=== PATIENT | female | born 1930 | race Caucasian/White ===

== ENCOUNTER 2019-07-17 20:52 | Inpatient (IN) ==
[2019-07-17 23:17] LABS: Basophils % 0.2 % (0.0-0.8); Hematocrit 43.3 VOL% (35.7-47.0); Immature Granulocytes % 0.7 %; Immature Granulocytes Absolute 0.11 #; Lymphocytes # 1.6 10*3/uL (1.4-4.0); Lymphocytes % 10.2 % (21.3-54.2); Mean Corpuscular HGB Conc 32.3 GM/DL (32-36); Mean Corpuscular Volume 92.5 FL (87-102); Mean Platelet Volume 10.5 FL (9.6-12.0); Neutrophils % 82.9 % (38.7-73.9); Platelet Count 127 T/CUMM (130-400); Red Blood Count 4.68 MC/CUMM (3.8-5.5); White Blood Count 15.6 T/CUMM (4-12)
[2019-07-17 23:26] LABS: Albumin 3.6 G/DL (3.4-5.0); Bilirubin,Total 1.3 MG/DL (0.2-1.0); Calcium 8.9 MG/DL (8.5-10.1); Osmolality,Calculated 280.3 MOS/KG (273-304); Total Protein 6.8 G/DL (6.4-8.3)
[2019-07-17] MEDS ORDERED: SODIUM CHLORIDE 0.9% 1,000 ML IV STA (23:38)
[2019-07-18 00:06] LABS: Apearance,Urine CLEAR (Clear); Bilirubin,Urine Negative (Negative); Blood, Urine Negative (Negative); Glucose,Urine (UA) Negative (Negative); Ketones,Urine 20 mg/dL (Negative); Mucus,Urine Occasional /LPF (Occasional); Nitrite,Urine Negative (Negative); Protein,Urine 30 MG/DL; RBC,Urine 3 /HPF (0-4); Squamous Epithelial Cell,Urine Occasional /HPF (0-10); Urine Color Yellow (Yellow); Urine Specific Gravity 1.019 (1.001-1.035); Urine Urobilinogen < 2.0 EU/DL (0.2-1.0); WBC,Urine 1 /HPF (0-6)
[2019-07-18] MEDS ORDERED: NICOTINE 21 MG/24 HR PATCH TRANSDERM PRN (01:30)
[2019-07-18] MEDS ORDERED: BISACODYL 5 MG TABLET PO PRN (01:30)
[2019-07-18] MEDS: ACETAMINOPHEN 325 MG TABLET PO PRN (01:43)
[2019-07-18] MEDS: SODIUM CHLORIDE 0.9% 1,000 ML IV SCH ×2 (03:12→12:48)
[2019-07-18] MEDS ORDERED: PIPERACILLIN/TAZOBACTAM 3,375 MG in SODIUM CHLORIDE 0.9% 100 ML IV SCH (04:00)
[2019-07-18] MEDS ORDERED: NITROGLYCERIN SL 0.4 MG TABLET SL PRN (08:15)
[2019-07-18] MEDS: cefTRIAXone 1,000 MG in SYRINGE 1 EACH IV SCH (09:42)
[2019-07-18] MEDS: AZITHROMYCIN INJ 500 MG in SODIUM CHLORIDE 0.9% 250 ML IV SCH (09:47)
[2019-07-18] MEDS: ONDANSETRON 4 MG/2 ML VIAL IV PRN ×2 (10:02→14:38)
[2019-07-18] MEDS: POTASSIUM CHLORIDE 10 MEQ TABLET PO SCH (14:40)
[2019-07-18] MEDS: ASPIRIN EC 325 MG TABLET PO SCH (14:40)
[2019-07-18] MEDS: METOPROLOL TARTRATE 50 MG TABLET PO SCH ×2 (14:40→20:35)
[2019-07-18] MEDS: GABAPENTIN 600 MG TABLET PO SCH (20:36)
[2019-07-19 05:42] LABS: Basophils % 0.2 % (0.0-0.8); Eosinophils # 0.1 10*3/uL (0.0-0.87); Eosinophils % 0.6 % (0.00-10.9); Hematocrit 38.7 VOL% (35.7-47.0); Hemoglobin 12.2 GM/DL (12.0-16.0); Immature Granulocytes % 0.6 %; Immature Granulocytes Absolute 0.07 #; Lymphocytes # 1.5 10*3/uL (1.4-4.0); Lymphocytes % 12.1 % (21.3-54.2); Mean Corpuscular HGB Conc 31.5 GM/DL (32-36); Mean Corpuscular Volume 93.5 FL (87-102); Mean Platelet Volume 10.6 FL (9.6-12.0); Monocytes % 4.4 % (1.7-12.7); Neutrophils % 82.1 % (38.7-73.9); Platelet Count 103 T/CUMM (130-400); Red Blood Count 4.14 MC/CUMM (3.8-5.5); Red Cell Distribution Width 13.9 % (9.3-17.3); White Blood Count 12.2 T/CUMM (4-12)
[2019-07-19 06:29] LABS: Calcium 8.8 MG/DL (8.5-10.1); Osmolality,Calculated 279.3 MOS/KG (273-304)
[2019-07-19] MEDS: GABAPENTIN 600 MG TABLET PO SCH ×3 (09:29→21:52)
[2019-07-19] MEDS: POTASSIUM CHLORIDE 10 MEQ TABLET PO SCH (09:30)
[2019-07-19] MEDS: ASPIRIN EC 325 MG TABLET PO SCH (09:30)
[2019-07-19] MEDS: cefTRIAXone 1,000 MG in SYRINGE 1 EACH IV SCH (09:30)
[2019-07-19] MEDS: METOPROLOL TARTRATE 50 MG TABLET PO SCH ×2 (09:30→21:52)
[2019-07-19] MEDS: AZITHROMYCIN INJ 500 MG in SODIUM CHLORIDE 0.9% 250 ML IV SCH (09:31)
[2019-07-19] MEDS: SODIUM CHLORIDE 0.9% 1,000 ML IV SCH ×3 (10:27→22:50)
[2019-07-20] MEDS: ACETAMINOPHEN 325 MG TABLET PO PRN ×2 (00:26→10:33)
[2019-07-20] MEDS: ASPIRIN EC 325 MG TABLET PO SCH (09:25)
[2019-07-20] MEDS: GABAPENTIN 600 MG TABLET PO SCH ×3 (09:25→21:40)
[2019-07-20] MEDS: SODIUM CHLORIDE 0.9% 1,000 ML IV SCH ×2 (09:26→23:34)
[2019-07-20] MEDS: METOPROLOL TARTRATE 50 MG TABLET PO SCH ×2 (09:26→21:40)
[2019-07-20] MEDS: POTASSIUM CHLORIDE 10 MEQ TABLET PO SCH (09:26)
[2019-07-20] MEDS: cefTRIAXone 1,000 MG in SYRINGE 1 EACH IV SCH (09:27)
[2019-07-20] MEDS: AZITHROMYCIN INJ 500 MG in SODIUM CHLORIDE 0.9% 250 ML IV SCH (09:27)
[2019-07-20] MEDS: ONDANSETRON 4 MG/2 ML VIAL IV PRN (22:50)
[2019-07-20] MEDS: ALBUTEROL 2.5 MG/3 ML NEB RESP TX SCH (23:20)
[2019-07-21] MEDS ORDERED: hydrALAZINE 20 MG/1 ML VIAL IV ONE (00:48)
[2019-07-21] MEDS ORDERED: ALBUTEROL/IPRATROPIUM 3 ML NEB RESP TX ONE (01:00)
[2019-07-21 01:14] LABS: ABG HCO3 24.3 MMOL/L (20-26); ABG Oxygen Saturation 91.6 % (95-100); ABG PCO2 46.5 MM HG (35-48); ABG PH 7.355 (7.35-7.45); ABG PO2 58.3 MM HG (80-95); ABG TCO2 23.1 MMOL/L (23-27); Allen Test Positive
[2019-07-21] MEDS: ALBUTEROL 2.5 MG/3 ML NEB RESP TX SCH ×4 (02:07→20:17)
[2019-07-21] MEDS ORDERED: PROMETHAZINE 25 MG/1 ML VIAL IM PRN (02:11)
[2019-07-21 03:55] LABS: Apearance,Urine CLEAR (Clear); Bilirubin,Urine Negative (Negative); Blood, Urine Negative (Negative); Glucose,Urine (UA) Negative (Negative); Ketones,Urine 5 mg/dL (Negative); Nitrite,Urine Negative (Negative); Protein,Urine Negative; RBC,Urine 3 /HPF (0-4); Squamous Epithelial Cell,Urine Occasional /HPF (0-10); Urine Color Yellow (Yellow); Urine Specific Gravity 1.029 (1.001-1.035); Urine Urobilinogen < 2.0 EU/DL (0.2-1.0); WBC,Urine 1 /HPF (0-6)
[2019-07-21] MEDS ORDERED: FUROSEMIDE 40 MG/4 ML VIAL IV ONE (04:30)
[2019-07-21 05:13] LABS: Basophils % 0.6 % (0.0-0.8); Eosinophils # 0.1 10*3/uL (0.0-0.87); Eosinophils % 0.8 % (0.00-10.9); Hematocrit 36.1 VOL% (35.7-47.0); Hemoglobin 11.4 GM/DL (12.0-16.0); Immature Granulocytes % 2.2 %; Immature Granulocytes Absolute 0.16 #; Lymphocytes # 0.9 10*3/uL (1.4-4.0); Lymphocytes % 12.9 % (21.3-54.2); Mean Corpuscular HGB Conc 31.6 GM/DL (32-36); Mean Corpuscular Volume 92.6 FL (87-102); Mean Platelet Volume 10.3 FL (9.6-12.0); Monocytes % 7.2 % (1.7-12.7); Neutrophils % 76.3 % (38.7-73.9); Platelet Count 141 T/CUMM (130-400); White Blood Count 7.2 T/CUMM (4-12)
[2019-07-21 05:42] LABS: Albumin 2.6 G/DL (3.4-5.0); Bilirubin,Total 1.1 MG/DL (0.2-1.0); Calcium 8.8 MG/DL (8.5-10.1); Osmolality,Calculated 279.4 MOS/KG (273-304); Total Protein 5.7 G/DL (6.4-8.3)
[2019-07-21] MEDS: POTASSIUM CHLORIDE 10 MEQ TABLET PO SCH (08:41)
[2019-07-21] MEDS: cefTRIAXone 1,000 MG in SYRINGE 1 EACH IV SCH (08:41)
[2019-07-21] MEDS: ASPIRIN EC 325 MG TABLET PO SCH (08:41)
[2019-07-21] MEDS: METOPROLOL TARTRATE 50 MG TABLET PO SCH ×2 (08:42→21:56)
[2019-07-21] MEDS: GABAPENTIN 600 MG TABLET PO SCH ×3 (08:42→21:56)
[2019-07-21] MEDS: AZITHROMYCIN INJ 500 MG in SODIUM CHLORIDE 0.9% 250 ML IV SCH (09:38)
[2019-07-21] MEDS: MEROPENEM 500 MG in SODIUM CHLORIDE 0.9% 100 ML IV SCH ×3 (10:54→22:50)
[2019-07-21] MEDS: ACETAMINOPHEN 325 MG TABLET PO PRN (21:56)
[2019-07-22] MEDS: ALBUTEROL 2.5 MG/3 ML NEB RESP TX SCH ×4 (00:20→19:34)
[2019-07-22 04:24] LABS: ABG Base Excess 2.9 MMOL/L (-2.5-2.5); ABG HCO3 29.2 MMOL/L (20-26); ABG Oxygen Saturation 92.6 % (95-100); ABG PCO2 52.9 MM HG (35-48); ABG PO2 65.7 MM HG (80-95); ABG TCO2 30.8 MMOL/L (23-27); Allen Test Positive
[2019-07-22 04:44] LABS: Basophils % 0.5 % (0.0-0.8); Eosinophils # 0.4 10*3/uL (0.0-0.87); Eosinophils % 6.8 % (0.00-10.9); Hematocrit 35.5 VOL% (35.7-47.0); Hemoglobin 10.9 GM/DL (12.0-16.0); Immature Granulocytes % 1.7 %; Lymphocytes # 1.6 10*3/uL (1.4-4.0); Lymphocytes % 27.1 % (21.3-54.2); Mean Corpuscular HGB Conc 30.7 GM/DL (32-36); Mean Corpuscular Volume 95.9 FL (87-102); Monocytes % 8.1 % (1.7-12.7); Neutrophils % 55.8 % (38.7-73.9); Platelet Count 131 T/CUMM (130-400); Red Cell Distribution Width 14.1 % (9.3-17.3); White Blood Count 5.9 T/CUMM (4-12)
[2019-07-22] MEDS: MEROPENEM 500 MG in SODIUM CHLORIDE 0.9% 100 ML IV SCH ×4 (04:45→21:53)
[2019-07-22 04:59] LABS: Calcium 8.2 MG/DL (8.5-10.1); Osmolality,Calculated 282.8 MOS/KG (273-304)
[2019-07-22] MEDS: METOPROLOL TARTRATE 50 MG TABLET PO SCH ×2 (09:31→21:53)
[2019-07-22] MEDS: ASPIRIN EC 325 MG TABLET PO SCH (09:32)
[2019-07-22] MEDS: POTASSIUM CHLORIDE 10 MEQ TABLET PO SCH (09:32)
[2019-07-22] MEDS: GABAPENTIN 600 MG TABLET PO SCH ×3 (09:32→21:53)
[2019-07-22] MEDS: AZITHROMYCIN INJ 500 MG in SODIUM CHLORIDE 0.9% 250 ML IV SCH (09:35)
[2019-07-22] MEDS ORDERED: ALBUTEROL 2.5 MG/3 ML NEB RESP TX PRN (20:38)
[2019-07-23] MEDS: ALBUTEROL 2.5 MG/3 ML NEB RESP TX SCH ×4 (01:44→19:17)
[2019-07-23] MEDS: MEROPENEM 500 MG in SODIUM CHLORIDE 0.9% 100 ML IV SCH ×4 (04:18→21:12)
[2019-07-23] MEDS: ACETAMINOPHEN 325 MG TABLET PO PRN (04:18)
[2019-07-23 04:53] LABS: Basophils % 0.3 % (0.0-0.8); Eosinophils # 0.4 10*3/uL (0.0-0.87); Hematocrit 36.2 VOL% (35.7-47.0); Hemoglobin 11.2 GM/DL (12.0-16.0); Immature Granulocytes % 1.4 %; Lymphocytes # 1.5 10*3/uL (1.4-4.0); Lymphocytes % 21.9 % (21.3-54.2); Mean Corpuscular HGB Conc 30.9 GM/DL (32-36); Mean Corpuscular Volume 95.3 FL (87-102); Mean Platelet Volume 9.7 FL (9.6-12.0); Monocytes % 8.4 % (1.7-12.7); Platelet Count 152 T/CUMM (130-400)
[2019-07-23 05:11] LABS: Calcium 8.3 MG/DL (8.5-10.1)
[2019-07-23 05:12] LABS: Troponin I 0.1 NG/ML (0.00-0.045)
[2019-07-23] MEDS: POTASSIUM CHLORIDE 10 MEQ TABLET PO SCH (09:18)
[2019-07-23] MEDS: ASPIRIN EC 325 MG TABLET PO SCH (09:18)
[2019-07-23] MEDS: GABAPENTIN 600 MG TABLET PO SCH ×3 (09:19→21:11)
[2019-07-23] MEDS: METOPROLOL TARTRATE 50 MG TABLET PO SCH ×2 (09:19→21:11)
[2019-07-23] MEDS: ONDANSETRON 4 MG/2 ML VIAL IV PRN (23:48)
[2019-07-24] MEDS ORDERED: hydrALAZINE 20 MG/1 ML VIAL IV PRN (00:16)
[2019-07-24] MEDS: ALBUTEROL 2.5 MG/3 ML NEB RESP TX SCH ×4 (01:23→20:21)
[2019-07-24] MEDS: MEROPENEM 500 MG in SODIUM CHLORIDE 0.9% 100 ML IV SCH ×2 (03:13→11:07)
[2019-07-24 05:02] LABS: Basophils % 0.4 % (0.0-0.8); Eosinophils # 0.3 10*3/uL (0.0-0.87); Eosinophils % 4.5 % (0.00-10.9); Hematocrit 37.4 VOL% (35.7-47.0); Hemoglobin 11.7 GM/DL (12.0-16.0); Immature Granulocytes % 1.3 %; Immature Granulocytes Absolute 0.09 #; Lymphocytes # 1.7 10*3/uL (1.4-4.0); Lymphocytes % 23.2 % (21.3-54.2); Mean Corpuscular HGB Conc 31.3 GM/DL (32-36); Mean Corpuscular Volume 94.7 FL (87-102); Mean Platelet Volume 9.7 FL (9.6-12.0); Monocytes % 7.7 % (1.7-12.7); Neutrophils % 62.9 % (38.7-73.9); Platelet Count 163 T/CUMM (130-400); Red Blood Count 3.95 MC/CUMM (3.8-5.5); Red Cell Distribution Width 13.7 % (9.3-17.3); White Blood Count 7.1 T/CUMM (4-12)
[2019-07-24 05:19] LABS: Calcium 8.3 MG/DL (8.5-10.1); Osmolality,Calculated 287.6 MOS/KG (273-304)
[2019-07-24] MEDS: ONDANSETRON 4 MG/2 ML VIAL IV PRN ×3 (09:32→13:32)
[2019-07-24] MEDS ORDERED: FUROSEMIDE 40 MG/4 ML VIAL IV ONE (09:46)
[2019-07-24] MEDS ORDERED: FUROSEMIDE 40 MG/4 ML VIAL IV SCH (10:00)
[2019-07-24] MEDS ORDERED: FLUCONAZOLE 200 MG TABLET PO ONE (10:37)
[2019-07-24] MEDS: NYSTATIN 500,000 UNIT/5 ML UDCUP SWISH/SWAL SCH ×4 (10:58→20:40)
[2019-07-24] MEDS: ASPIRIN EC 325 MG TABLET PO SCH (11:03)
[2019-07-24] MEDS: POTASSIUM CHLORIDE 10 MEQ TABLET PO SCH (11:03)
[2019-07-24] MEDS: METOPROLOL TARTRATE 50 MG TABLET PO SCH ×2 (11:04→20:40)
[2019-07-24] MEDS: GABAPENTIN 600 MG TABLET PO SCH ×3 (11:04→20:40)
[2019-07-24] MEDS: CLINDAMYCIN INJ 600 MG in PREMIX 1 EACH IV SCH ×2 (12:31→20:00)
[2019-07-24] MEDS: cefTRIAXone 2,000 MG in SYRINGE 1 EACH IV SCH (12:58)
[2019-07-25] MEDS: ALBUTEROL 2.5 MG/3 ML NEB RESP TX SCH ×4 (00:57→20:04)
[2019-07-25] MEDS: CLINDAMYCIN INJ 600 MG in PREMIX 1 EACH IV SCH ×3 (05:18→20:33)
[2019-07-25] MEDS: METOPROLOL TARTRATE 50 MG TABLET PO SCH ×2 (09:09→22:16)
[2019-07-25] MEDS: FLUCONAZOLE 100 MG TABLET PO SCH (09:09)
[2019-07-25] MEDS: GABAPENTIN 600 MG TABLET PO SCH ×3 (09:09→22:16)
[2019-07-25] MEDS: ASPIRIN EC 325 MG TABLET PO SCH (09:09)
[2019-07-25] MEDS: NYSTATIN 500,000 UNIT/5 ML UDCUP SWISH/SWAL SCH ×4 (09:10→22:17)
[2019-07-25] MEDS: POTASSIUM CHLORIDE 10 MEQ TABLET PO SCH (09:10)
[2019-07-25] MEDS: SKIN HEALING OINT (AQUAPHOR) 50 GM TUBE TOP SCH (09:10)
[2019-07-25] MEDS ORDERED: FUROSEMIDE 40 MG/4 ML VIAL IV SCH (10:00)
[2019-07-25] MEDS: cefTRIAXone 2,000 MG in SYRINGE 1 EACH IV SCH (12:38)
[2019-07-25] MEDS ORDERED: SKIN HEALING OINT (AQUAPHOR) 50 GM TUBE TOP SCH (16:14)
[2019-07-25] MEDS: FUROSEMIDE 40 MG/4 ML VIAL IV SCH (16:53)
[2019-07-25] MEDS: methylPREDNISolone SOD SUC 40 MG/1 ML VIAL IV SCH (18:00)
[2019-07-25 19:13] LABS: Eosinophils,Pleural Fluid 2 %; Lymphocytes,Pleural Fluid 48 %; Monocytes,Pleural Fluid 24 %; Neutrophils,Pleural Fluid 26 %; RBC,Pleural Fluid 289 T/CUMM
[2019-07-26] MEDS: ALBUTEROL 2.5 MG/3 ML NEB RESP TX SCH ×4 (00:17→19:25)
[2019-07-26] MEDS: methylPREDNISolone SOD SUC 40 MG/1 ML VIAL IV SCH ×3 (01:32→17:52)
[2019-07-26] MEDS: CLINDAMYCIN INJ 600 MG in PREMIX 1 EACH IV SCH ×3 (04:06→20:46)
[2019-07-26] MEDS: METOPROLOL TARTRATE 50 MG TABLET PO SCH ×2 (10:00→20:41)
[2019-07-26] MEDS: ASPIRIN EC 325 MG TABLET PO SCH (10:00)
[2019-07-26] MEDS: POTASSIUM CHLORIDE 10 MEQ TABLET PO SCH (10:00)
[2019-07-26] MEDS: GABAPENTIN 600 MG TABLET PO SCH ×3 (10:00→20:42)
[2019-07-26] MEDS: FLUCONAZOLE 100 MG TABLET PO SCH (10:00)
[2019-07-26] MEDS: NYSTATIN 500,000 UNIT/5 ML UDCUP SWISH/SWAL SCH ×4 (10:02→20:42)
[2019-07-26] MEDS: FUROSEMIDE 40 MG/4 ML VIAL IV SCH ×2 (10:03→17:52)
[2019-07-26] MEDS: SKIN HEALING OINT (AQUAPHOR) 50 GM TUBE TOP SCH (10:03)
[2019-07-26] MEDS: cefTRIAXone 2,000 MG in SYRINGE 1 EACH IV SCH (14:30)
[2019-07-27] MEDS: ALBUTEROL 2.5 MG/3 ML NEB RESP TX SCH ×5 (00:30→20:38)
[2019-07-27] MEDS: methylPREDNISolone SOD SUC 40 MG/1 ML VIAL IV SCH ×3 (02:12→21:38)
[2019-07-27] MEDS: CLINDAMYCIN INJ 600 MG in PREMIX 1 EACH IV SCH ×3 (04:22→21:35)
[2019-07-27] MEDS: POTASSIUM CHLORIDE 10 MEQ TABLET PO SCH (09:15)
[2019-07-27] MEDS: GABAPENTIN 600 MG TABLET PO SCH ×3 (09:15→21:37)
[2019-07-27] MEDS: FLUCONAZOLE 100 MG TABLET PO SCH (09:15)
[2019-07-27] MEDS: METOPROLOL TARTRATE 50 MG TABLET PO SCH ×2 (09:15→21:36)
[2019-07-27] MEDS: NYSTATIN 500,000 UNIT/5 ML UDCUP SWISH/SWAL SCH ×4 (09:15→21:49)
[2019-07-27] MEDS: ASPIRIN EC 325 MG TABLET PO SCH (09:15)
[2019-07-27] MEDS: SKIN HEALING OINT (AQUAPHOR) 50 GM TUBE TOP SCH (09:16)
[2019-07-27] MEDS: FUROSEMIDE 40 MG/4 ML VIAL IV SCH ×2 (09:16→17:03)
[2019-07-27] MEDS: cefTRIAXone 2,000 MG in SYRINGE 1 EACH IV SCH (13:09)
[2019-07-28] MEDS: ALBUTEROL 2.5 MG/3 ML NEB RESP TX SCH ×4 (01:30→19:58)
[2019-07-28] MEDS: CLINDAMYCIN INJ 600 MG in PREMIX 1 EACH IV SCH ×3 (05:13→22:13)
[2019-07-28 05:30] LABS: Basophils % 0.2 % (0.0-0.8); Hematocrit 36.2 VOL% (35.7-47.0); Hemoglobin 11.3 GM/DL (12.0-16.0); Immature Granulocytes % 1.6 %; Immature Granulocytes Absolute 0.21 #; Lymphocytes % 7.5 % (21.3-54.2); Mean Corpuscular HGB Conc 31.2 GM/DL (32-36); Mean Corpuscular Volume 92.6 FL (87-102); Mean Platelet Volume 10.1 FL (9.6-12.0); Monocytes % 1.9 % (1.7-12.7); Neutrophils % 88.8 % (38.7-73.9); Platelet Count 294 T/CUMM (130-400); Red Blood Count 3.91 MC/CUMM (3.8-5.5); Red Cell Distribution Width 13.8 % (9.3-17.3); White Blood Count 13.2 T/CUMM (4-12)
[2019-07-28 06:08] LABS: Calcium 8.6 MG/DL (8.5-10.1); Osmolality,Calculated 292.8 MOS/KG (273-304)
[2019-07-28] MEDS: GABAPENTIN 600 MG TABLET PO SCH ×3 (09:24→22:15)
[2019-07-28] MEDS: METOPROLOL TARTRATE 50 MG TABLET PO SCH ×2 (09:24→22:16)
[2019-07-28] MEDS: methylPREDNISolone SOD SUC 40 MG/1 ML VIAL IV SCH ×2 (09:25→22:28)
[2019-07-28] MEDS: FUROSEMIDE 40 MG/4 ML VIAL IV SCH ×2 (09:25→16:13)
[2019-07-28] MEDS: FLUCONAZOLE 100 MG TABLET PO SCH (09:25)
[2019-07-28] MEDS: SKIN HEALING OINT (AQUAPHOR) 50 GM TUBE TOP SCH (09:25)
[2019-07-28] MEDS: NYSTATIN 500,000 UNIT/5 ML UDCUP SWISH/SWAL SCH ×4 (09:25→22:15)
[2019-07-28] MEDS: ASPIRIN EC 325 MG TABLET PO SCH (09:25)
[2019-07-28] MEDS: POTASSIUM CHLORIDE 10 MEQ TABLET PO SCH (09:25)
[2019-07-28] MEDS: cefTRIAXone 2,000 MG in SYRINGE 1 EACH IV SCH (12:33)
[2019-07-28] MEDS: BENZONATATE 100 MG CAPSULE PO SCH (22:15)
[2019-07-28] MEDS: LIDOCAINE 2% VISCOUS 100 ML BOTTLE SWISH/SPIT SCH (22:16)
[2019-07-29] MEDS: ALBUTEROL 2.5 MG/3 ML NEB RESP TX SCH ×4 (00:45→20:18)
[2019-07-29] MEDS: LIDOCAINE 2% VISCOUS 100 ML BOTTLE SWISH/SPIT SCH ×4 (01:02→15:04)
[2019-07-29] MEDS: CLINDAMYCIN INJ 600 MG in PREMIX 1 EACH IV SCH ×3 (04:06→20:55)
[2019-07-29] MEDS: SKIN HEALING OINT (AQUAPHOR) 50 GM TUBE TOP SCH (09:00)
[2019-07-29] MEDS: FUROSEMIDE 40 MG/4 ML VIAL IV SCH ×2 (10:06→17:30)
[2019-07-29] MEDS: BENZONATATE 100 MG CAPSULE PO SCH ×3 (10:07→20:47)
[2019-07-29] MEDS: ASPIRIN EC 325 MG TABLET PO SCH (10:07)
[2019-07-29] MEDS: GABAPENTIN 600 MG TABLET PO SCH ×3 (10:07→20:47)
[2019-07-29] MEDS: methylPREDNISolone SOD SUC 40 MG/1 ML VIAL IV SCH (10:07)
[2019-07-29] MEDS: MULTIVITAMIN (BEROCCA) TABLET PO SCH (10:07)
[2019-07-29] MEDS: FLUCONAZOLE 100 MG TABLET PO SCH (10:08)
[2019-07-29] MEDS: POTASSIUM CHLORIDE 10 MEQ TABLET PO SCH (10:08)
[2019-07-29] MEDS: METOPROLOL TARTRATE 50 MG TABLET PO SCH ×2 (10:08→20:47)
[2019-07-29] MEDS: CHOLECALCIFEROL 1,000 UNIT TABLET PO SCH (10:08)
[2019-07-29] MEDS: NYSTATIN 500,000 UNIT/5 ML UDCUP SWISH/SWAL SCH ×4 (10:09→20:49)
[2019-07-29] MEDS: cefTRIAXone 2,000 MG in SYRINGE 1 EACH IV SCH (15:04)
[2019-07-29] MEDS: ATORVASTATIN 40 MG TABLET PO SCH (20:47)
[2019-07-30] MEDS: ALBUTEROL 2.5 MG/3 ML NEB RESP TX SCH ×4 (01:07→19:12)
[2019-07-30] MEDS: CLINDAMYCIN INJ 600 MG in PREMIX 1 EACH IV SCH ×3 (04:12→19:18)
[2019-07-30] MEDS: FUROSEMIDE 40 MG/4 ML VIAL IV SCH ×2 (09:03→15:21)
[2019-07-30] MEDS: predniSONE 20 MG TABLET PO SCH (09:04)
[2019-07-30] MEDS: BENZONATATE 100 MG CAPSULE PO SCH ×3 (09:04→22:29)
[2019-07-30] MEDS: CHOLECALCIFEROL 1,000 UNIT TABLET PO SCH (09:04)
[2019-07-30] MEDS: NYSTATIN 500,000 UNIT/5 ML UDCUP SWISH/SWAL SCH ×4 (09:04→22:28)
[2019-07-30] MEDS: METOPROLOL TARTRATE 50 MG TABLET PO SCH ×2 (09:04→22:28)
[2019-07-30] MEDS: ASPIRIN EC 325 MG TABLET PO SCH (09:04)
[2019-07-30] MEDS: POTASSIUM CHLORIDE 10 MEQ TABLET PO SCH (09:04)
[2019-07-30] MEDS: MULTIVITAMIN (BEROCCA) TABLET PO SCH (09:05)
[2019-07-30] MEDS: FLUCONAZOLE 100 MG TABLET PO SCH (09:05)
[2019-07-30] MEDS: GABAPENTIN 600 MG TABLET PO SCH ×3 (09:05→22:28)
[2019-07-30] MEDS: SKIN HEALING OINT (AQUAPHOR) 50 GM TUBE TOP SCH (09:05)
[2019-07-30] MEDS: cefTRIAXone 2,000 MG in SYRINGE 1 EACH IV SCH (12:50)
[2019-07-30] MEDS: ATORVASTATIN 40 MG TABLET PO SCH (22:28)
[2019-07-31] MEDS: ALBUTEROL 2.5 MG/3 ML NEB RESP TX SCH ×2 (00:28→08:07)
[2019-07-31] MEDS: CLINDAMYCIN INJ 600 MG in PREMIX 1 EACH IV SCH ×2 (03:40→11:52)
[2019-07-31] MEDS: FUROSEMIDE 40 MG/4 ML VIAL IV SCH (09:07)
[2019-07-31] MEDS: GABAPENTIN 600 MG TABLET PO SCH (09:08)
[2019-07-31] MEDS: ASPIRIN EC 325 MG TABLET PO SCH (09:08)
[2019-07-31] MEDS: NYSTATIN 500,000 UNIT/5 ML UDCUP SWISH/SWAL SCH (09:08)
[2019-07-31] MEDS: METOPROLOL TARTRATE 50 MG TABLET PO SCH (09:08)
[2019-07-31] MEDS: BENZONATATE 100 MG CAPSULE PO SCH (09:08)
[2019-07-31] MEDS: FLUCONAZOLE 100 MG TABLET PO SCH (09:08)
[2019-07-31] MEDS: CHOLECALCIFEROL 1,000 UNIT TABLET PO SCH (09:08)
[2019-07-31] MEDS: POTASSIUM CHLORIDE 10 MEQ TABLET PO SCH (09:08)
[2019-07-31] MEDS: MULTIVITAMIN (BEROCCA) TABLET PO SCH (09:09)
[2019-07-31] MEDS: predniSONE 20 MG TABLET PO SCH (09:09)
[2019-07-31] MEDS: SKIN HEALING OINT (AQUAPHOR) 50 GM TUBE TOP SCH (09:09)
[2019-07-31] MEDS: cefTRIAXone 2,000 MG in SYRINGE 1 EACH IV SCH (11:52)
[2019-07-31 13:12] VITALS: BP 87/55
== END 2019-07-31 14:17 | disposition home or self-care (01) | DRG 193 ==
LOC: EDUNIT# → EDBD → N.ED 20:52 → N.EDINP 20:52 → SUATTDRO 07-18 01:30 → N.EDINP 07-18 02:30 → N.2E 07-18 02:41 → N.ICU 07-21 03:06 → SUATTDRO 07-21 09:53 → N.TELEN 07-23 12:07
PROVIDERS: ADMIT Internal Medicine; ATTEND Hospitalist